=== PATIENT | male | born 1975 | race African-American/Black ===

== ENCOUNTER 2022-09-12 14:13 | Inpatient (IN) | payer OTHER ==
[2022-09-12 14:45] VITALS: BMI 19.3
[2022-09-12] MEDS ORDERED: IBUPROFEN 400 MG TABLET (FP) PO PRN (16:29)
[2022-09-12] MEDS ORDERED: DICYCLOMINE HCL 10 MG CAPSULE PO PRN (16:29)
[2022-09-12] MEDS ORDERED: MAG HYDROX/AL HYDROX/SIMETH 30 ML UNIT-DOSE CUP PO PRN (16:29)
[2022-09-12] MEDS ORDERED: ONDANSETRON *ODT* 4 MG TABLET SL PRN (16:29)
[2022-09-12] MEDS ORDERED: NALOXONE HCL 0.4 MG/ML VIAL IM PRN (16:29)
[2022-09-12] MEDS ORDERED: BENZOCAINE/MENTHOL (CHLORASEPTIC ) LOZENGE MM PRN (16:29)
[2022-09-12] MEDS ORDERED: BISMUTH SUBSALICYLATE 524 MG/30 ML PO PRN (16:29)
[2022-09-12] MEDS ORDERED: MAGNESIUM HYDROX 2400MG/30ML ORAL SUSPENSION 30 ML CUP PO PRN (16:29)
[2022-09-12] MEDS ORDERED: NALOXONE HCL (KLOXXADO) 8 MG SPRAY NS PRN (16:29)
[2022-09-12] MEDS ORDERED: ACETAMINOPHEN 325 MG TABLET (FP) PO PRN (16:29)
[2022-09-12] MEDS ORDERED: chlordiazePOXIDE HCL 25 MG CAPSULE PO PRN (16:29)
[2022-09-12] MEDS ORDERED: LOPERAMIDE HCL 2 MG CAPSULE PO PRN (16:29)
[2022-09-12] MEDS ORDERED: POLYETHYLENE GLYCOL (HEALTHYLAX) 3350 17 GM PACKET PO PRN (16:29)
[2022-09-12] MEDS ORDERED: guaiFENesin 600 MG TABLET.ER (FP) PO PRN (16:29)
[2022-09-12] MEDS ORDERED: NICOTINE 10 MG CARTRIDGE (INHALER) IH PRN (16:29)
[2022-09-12] MEDS ORDERED: IBUPROFEN 600 MG TABLET (FP) PO PRN (16:29)
[2022-09-12] MEDS ORDERED: BENZONATATE 200 MG CAPSULE PO PRN (16:29)
[2022-09-12] MEDS ORDERED: AMMONIUM LACTATE 12% LOTION 225 GM BOTTLE TP PRN (16:35)
[2022-09-12] MEDS ORDERED: chlordiazePOXIDE HCL 25 MG CAPSULE ONE (17:55)
[2022-09-12] MEDS: chlordiazePOXIDE HCL 25 MG CAPSULE PO SCH ×2 (18:00→22:50)
[2022-09-12] MEDS: MELATONIN 5 MG TABLETS PO SCH (22:50)
[2022-09-12] MEDS: GABAPENTIN 300 MG CAPSULE PO SCH (22:50)
[2022-09-12] MEDS: THIAMINE HCL 100 MG TABLET (FP) PO SCH (22:50)
[2022-09-13] MEDS: chlordiazePOXIDE HCL 25 MG CAPSULE PO SCH ×2 (05:50→10:37)
[2022-09-13] MEDS: GABAPENTIN 300 MG CAPSULE PO SCH ×3 (05:50→22:43)
[2022-09-13] MEDS: hydrOXYzine PAMOATE 25 MG CAPSULE (FP) PO PRN (10:37)
[2022-09-13] MEDS: PRENATAL VITAMINS W/ FOLIC ACID TABLET (FP) PO SCH (10:37)
[2022-09-13] MEDS: METHOCARBAMOL 500 MG TABLET PO PRN (10:37)
[2022-09-13 11:35] LABS: HEMATOCRIT 35.8 % (35.4-49); HEMOGLOBIN 11.9 GM/dL (11.7-16.9); MCH 31.2 pg (25.7-33.7); MCHC 33.2 g/dl (32.0-35.9); MEAN CELL VOLUME 93.9 fl (80-96); MEAN PLT VOLUME 9.3 fl (7.5-11.1); PLATELET COUNT 127 10^3/uL (134-434); RBC 3.81 M/mm3 (4.00-5.60); RDW 15.3 % (11.9-15.9); WHITE BLOOD COUNT 5.6 K/mm3 (4.0-10.0)
[2022-09-13 11:41] LABS: CHLORIDE 95 mmol/L (98-107); SODIUM 138 mmol/L (136-145)
[2022-09-13 11:44] LABS: CALCIUM 9.2 mg/dL (8.5-10.1); CO2 31 mmol/L (21-32); GLUCOSE,RANDOM 93 mg/dL (74-106)
[2022-09-13 11:48] LABS: CREATININE 0.6 mg/dL (0.55-1.3); SGOT/AST 293 U/L (15-37); SGPT/ALT 75 U/L (13-61)
[2022-09-13 11:50] LABS: ALK PHOS 224 U/L (45-117); BILIRUBIN,TOTAL 2.2 mg/dL (0.2-1); TOT PROT 7.9 g/dl (6.4-8.2)
[2022-09-13 11:53] LABS: ANION GAP 11 MMOL/L (8-16); BLOOD UREA NITROGEN 1.4 mg/dL (7-18); POTASSIUM 2.9 mmol/L (3.5-5.1)
[2022-09-13] MEDS ORDERED: LORazepam 1 MG TABLET PO PRN (12:12)
[2022-09-13] MEDS: POTASSIUM CHLORIDE ORAL LIQUID 20 MEQ/15 ML PO SCH ×2 (13:14→17:17)
[2022-09-13] MEDS ORDERED: LORazepam 2 MG TABLET PO SCH (15:00)
[2022-09-13] MEDS: LORazepam 2 MG TABLET PO SCH ×2 (17:17→22:43)
[2022-09-13] MEDS: MELATONIN 5 MG TABLETS PO SCH (22:43)
[2022-09-13] MEDS: AMMONIUM LACTATE 12% LOTION 225 GM BOTTLE TP SCH (22:43)
[2022-09-13] MEDS: THIAMINE HCL 100 MG TABLET (FP) PO SCH (22:43)
[2022-09-14] MEDS ORDERED: chlordiazePOXIDE HCL 25 MG CAPSULE PO SCH (05:00)
[2022-09-14] MEDS: LORazepam 2 MG TABLET PO SCH ×4 (05:37→22:50)
[2022-09-14] MEDS: GABAPENTIN 300 MG CAPSULE PO SCH ×3 (05:37→22:48)
[2022-09-14 10:24] LABS: POTASSIUM 3.8 mmol/L (3.5-5.1)
[2022-09-14] MEDS: AMMONIUM LACTATE 12% LOTION 225 GM BOTTLE TP SCH ×2 (10:28→22:50)
[2022-09-14] MEDS: PRENATAL VITAMINS W/ FOLIC ACID TABLET (FP) PO SCH (10:28)
[2022-09-14 10:29] LABS: BLOOD UREA NITROGEN 4.7 mg/dL (7-18)
[2022-09-14 10:34] LABS: BILIRUBIN,TOTAL 1.6 mg/dL (0.2-1)
[2022-09-14] MEDS: THIAMINE HCL 100 MG TABLET (FP) PO SCH (22:48)
[2022-09-14] MEDS: MELATONIN 5 MG TABLETS PO SCH (22:55)
[2022-09-15] MEDS ORDERED: chlordiazePOXIDE HCL 10 MG CAPSULE PO PRN
[2022-09-15] MEDS ORDERED: chlordiazePOXIDE HCL 10 MG CAPSULE PO SCH (05:00)
[2022-09-15] MEDS: GABAPENTIN 300 MG CAPSULE PO SCH ×3 (05:44→22:00)
[2022-09-15] MEDS: LORazepam 1 MG TABLET PO SCH ×4 (05:44→22:00)
[2022-09-15] MEDS: PRENATAL VITAMINS W/ FOLIC ACID TABLET (FP) PO SCH (10:44)
[2022-09-15] MEDS: AMMONIUM LACTATE 12% LOTION 225 GM BOTTLE TP SCH ×2 (10:45→22:02)
[2022-09-15 15:31] LABS: BILIRUBIN,TOTAL 1.2 mg/dL (0.2-1)
[2022-09-15] MEDS: THIAMINE HCL 100 MG TABLET (FP) PO SCH (22:00)
[2022-09-15] MEDS: MELATONIN 5 MG TABLETS PO SCH (22:02)
[2022-09-16] MEDS ORDERED: LORazepam 0.5 MG TABLET PO PRN
[2022-09-16] MEDS ORDERED: chlordiazePOXIDE HCL 10 MG CAPSULE PO SCH (05:00)
[2022-09-16] MEDS: LORazepam 0.5 MG TABLET PO SCH ×4 (05:57→22:00)
[2022-09-16] MEDS: GABAPENTIN 300 MG CAPSULE PO SCH ×3 (05:57→21:55)
[2022-09-16] MEDS: hydrOXYzine PAMOATE 25 MG CAPSULE (FP) PO PRN (10:23)
[2022-09-16] MEDS: PRENATAL VITAMINS W/ FOLIC ACID TABLET (FP) PO SCH (10:23)
[2022-09-16] MEDS: METHOCARBAMOL 500 MG TABLET PO PRN (10:23)
[2022-09-16] MEDS: AMMONIUM LACTATE 12% LOTION 225 GM BOTTLE TP SCH ×2 (10:25→22:33)
[2022-09-16 21:13] VITALS: RESP 18
[2022-09-16] MEDS: THIAMINE HCL 100 MG TABLET (FP) PO SCH (21:55)
[2022-09-16] MEDS: MELATONIN 5 MG TABLETS PO SCH (21:55)
[2022-09-17] MEDS ORDERED: chlordiazePOXIDE HCL 10 MG CAPSULE PO ONE (05:00)
[2022-09-17] MEDS ORDERED: LORazepam 0.5 MG TABLET PO ONE (05:00)
[2022-09-17] MEDS: GABAPENTIN 300 MG CAPSULE PO SCH (05:57)
[2022-09-17 06:55] VITALS: PULSE 81
[2022-09-17] MEDS: PRENATAL VITAMINS W/ FOLIC ACID TABLET (FP) PO SCH (10:42)
[2022-09-17] MEDS: AMMONIUM LACTATE 12% LOTION 225 GM BOTTLE TP SCH (10:43)
[2022-09-17 12:18] VITALS: BP 115/71; TEMP 97.8
== END 2022-09-17 11:40 | disposition other institution (70) | DRG 775 ==
LOC: YASAS 14:13 → Y6N 16:38
PROVIDERS: ADMIT Allergy & Immunology; ATTEND Surgery
PROC: HZ2ZZZZ Detoxification Services for Substance Abuse Treatment (ICD-10-PCS; principal; 2022-09-12)
DX: F10.230 Alcohol dependence with withdrawal, uncomplicated (principal); F12.20 Cannabis dependence, uncomplicated; F17.210 Nicotine dependence, cigarettes, uncomplicated; F10.282 Alcohol dependence with alcohol-induced sleep disorder; F10.280 Alcohol dependence with alcohol-induced anxiety disorder; F10.24 Alcohol dependence with alcohol-induced mood disorder; F32.A Depression, unspecified; E87.6 Hypokalemia; G62.9 Polyneuropathy, unspecified; L85.3 Xerosis cutis; R74.8 Abnormal levels of other serum enzymes; Z89.612 Acquired absence of left leg above knee; Z89.511 Acquired absence of right leg below knee; Z97.16 Presence of artificial legs, bilateral (complete) (partial); Z99.89 Dependence on other enabling machines and devices; Z91.011 Allergy to milk products
CPT/HCPCS: 36415; 71045-TC-FY; 80053; 82247; 84075; 84132; 84460; 84520; 85027; 86780; 87635; 93005; 93010